=== PATIENT | male | born 1965 | race African-American/Black ===

== ENCOUNTER 2019-10-26 02:47 | Emergency (ER) | payer BC, MEDICARE ==
[2019-10-26 03:04] VITALS: PULSE 90; RESP 18
--- NOTE | 2019-10-26 03:54 | ED ---
General Adult HPI - General Source: patient, RN notes reviewed, old records reviewed Mode of arrival: ambulatory Limitations: no limitations <Alan Smith - Last Filed: 10/26/19 03:51> <Payal Albarran - Last Filed: 10/28/19 22:24> - General Chief complaint: Eye Problems Stated complaint: Eye Pain Time Seen by Provider: 10/26/19 03:09 - History of Present Illness Initial comments: 54-year-old male patient past history hypertension hyperlipidemia glaucoma since ED for chief complaint right eye pain. Patient reports that he had a cataract surgery, lens implant and glaucoma procedure performed by Dr. King on Monday. Patient reports that for presentation he pain is right eye redness, photophobia, mild mode by pain. Reports that admission the redness has improved considerably. States that his vision that baseline. Reports that he still has photophobia and reports that his discomfort is mild in the right eye. Systemic: Pt denies fatigue, fever/chills, rash. Pt denies weakness, night sweats, weight loss. Neuro: Pt denies headache, visual disturbances, syncope or pre-syncope. HEENT: Pt denies ocular discharge or irritation, otalgia, rhinorrhea, pharyngitis or notable lymphadenopathy. Cardiopulmonary: Pt denies chest pain, SOB, heart palpitations, dyspnea on exertion. Abdominal/GI: Pt denies abdominal pain, n/v/d. : Pt denies dysuria, burning w/ urination, frequency/urgency. Denies new onset urinary or bowel incontinence. MSK: Pt denies myalgia, loss of strength or function in extremities. Neuro: Pt denies new onset weakness, paresthesias. (Alan Smith) - Related Data Home Medications Medication Instructions Recorded Confirmed Simvastatin [Zocor] 20 mg PO HS 08/28/17 10/26/19 amLODIPine [Norvasc] 5 mg PO DAILY 08/28/17 10/26/19 Aspirin EC [Ecotrin Low Dose] 81 mg PO DAILY 10/26/19 10/26/19 Besifloxacin HCl [Besivance] 1 drop RIGHT EYE TID 10/26/19 10/26/19 Olmesartan/Hydrochlorothiazide 1 each PO DAILY 10/26/19 10/26/19 [Benicar Hct 40-25 mg Tablet] Allergies Allergy/AdvReac Type Severity Reaction Status Date / Time Penicillins AdvReac Itching Verified 10/26/19 03:04 Review of Systems ROS Other: All systems not noted in ROS Statement are negative. <LuisAlan Edelmira - Last Filed: 10/26/19 03:51> ROS Other: All systems not noted in ROS Statement are negative. <Payal Albarran Ward - Last Filed: 10/28/19 22:24> ROS Statement: Those systems with pertinent positive or pertinent negative responses have been documented in the HPI. Past Medical History Past Medical History: Hyperlipidemia, Hypertension Additional Past Medical History / Comment(s): back pain History of Any Multi-Drug Resistant Organisms: None Reported Additional Past Surgical History / Comment(s): laminectomy (2012), eye surgery 10/21/19 Past Anesthesia/Blood Transfusion Reactions: No Reported Reaction Past Psychological History: No Psychological Hx Reported Smoking Status: Former smoker Past Alcohol Use History: Occasional Past Drug Use History: None Reported - Past Family History Father Family Medical History: CVA/TIA Additional Family Medical History / Comment(s): L side amputee Mother Family Medical History: No Reported History <Alan Smith - Last Filed: 10/26/19 03:51> General Exam Limitations: no limitations <Alan Smith - Last Filed: 10/26/19 03:51> - General Exam Comments Initial Comments: Constitutional: NAD, AOX3, Pt has pleasant affect. HEENT: NC/AT, trachea midline, neck supple, no lymphadenopathy. Posterior pharynx non erythematous, without exudates. External ears appear normal, without discharge. Mucous membranes moist. Eyes PERRLA, EOM intact. There is no scleral icterus. No pallor noted. Mild injection noted to right eye. Intraocular pressure right eye average of 9. Intraocular pressure of left average of 12. Cardiopulmonary: RRR, no murmurs, rubs or gallops, no JVD noted. Lungs CTAB in anterior and posterior warner. No peripheral edema. Abdominal exam: Abdomen soft and non-distended. Abdomen non-tender to palpation in all 4 quadrants. Bowel sounds active in LLQ. No hepatosplenomegaly. No ecchymosis Neuro: CN II-XII grossly intact. No nuchal rigidity. No raccon eyes, no alicea sign, no hemotympanum. No cervical spinal tenderness. MSK: No posterior calf tenderness bilaterally, homans sign negative bilaterally. Posterior tibialis and radial pulse +2 bilaterally. Sensation intact in upper and lower extremities. Full active ROM in upper and lower extremities, 5/5 stregnth. (Alan Smith) Course Vital Signs 10/26/19 10/26/19 03:00 04:00 Temperature 97.9 F 98 F Pulse Rate 90 90 Respiratory 18 18 Rate Blood Pressure 149/101 136/72 O2 Sat by Pulse 96 100 Oximetry Medical Decision Making <Alan Smith - Last Filed: 10/26/19 03:51> <Payal Albarran - Last Filed: 10/28/19 22:24> - Medical Decision Making 54-year-old male patient past history hypertension hyperlipidemia glaucoma since ED for chief complaint right eye pain. Patient reports that he had a cataract surgery, lens implant and glaucoma procedure performed by Dr. King on Monday. Patient reports that for presentation he pain is right eye redness, photophobia, mild mode by pain. Reports that admission the redness has improved considerably. States that his vision that baseline. Reports that he still has photophobia and reports that his discomfort is mild in the right eye. Pt VSS, afebrile. Physical exam displayed: Mild injection noted to right eye. Intraocular pressure right eye average of 9. Intraocular pressure of left average of 12. Patient is currently taking anabiotic eyedrops as directed. Case was discussed with attending physician Dr. Albarran who discussed case with senior director of [employer] opthamology Dr. Acosta, he recommended no further intervention of patient follow up with Dr. King on monday. Attempts to reach Dr. Kign were unsuccessful. Pt will be discharged, will return to ED if condition worsens. (Alan Smith) I was available for consultation in the emergency department. The history and physical exam were done by the midlevel provider. I was consulted for this patients care. I reviewed the case with the midlevel provider and based on their presentation of the patient, I agree with the assessment, medical decision making and plan of care as documented. I discussed the case with the senior director of [employer] insole and outsole splitter Dr. Acosta. He was comfortable with the patient being discharged home and following up with Dr. King on Monday. No further concerns or recommendations at this time. Return for any new or worsening symptoms. Chart was dictated using [employer] dictation software. Attempts were made to correct any dictation errors however some typographical errors may persist. (Payal Albarran) Disposition Is patient prescribed a controlled substance at d/c from ED?: No <Alan Smith - Last Filed: 10/26/19 03:51> <Payal Albarran - Last Filed: 10/28/19 22:24> Clinical Impression: Photophobia of right eye, Hx of cataract surgery Disposition: HOME SELF-CARE Condition: Stable Instructions (If sedation given, give patient instructions): Eye Pain (ED) Additional Instructions: Follow-up with Dr. King's office tomorrow. Continue to use eyedrops as directed. Return to ED if condition worsens in anyway. Referrals: Nonstaff,Physician [Primary Care Provider] - 1-2 days Fortino King MD [STAFF PHYSICIAN] - 1-2 days
[2019-10-26 04:04] VITALS: BP 136/72; TEMP 98
== END 2019-10-26 04:03 | disposition home or self-care (01) ==
LOC: EC 02:47
DX: H53.141 Visual discomfort, right eye (principal); Z98.41 Cataract extraction status, right eye; Z96.1 Presence of intraocular lens; H57.89 Other specified disorders of eye and adnexa; H57.11 Ocular pain, right eye; E78.5 Hyperlipidemia, unspecified; I10 Essential (primary) hypertension; H40.9 Unspecified glaucoma; Z87.891 Personal history of nicotine dependence; Z88.0 Allergy status to penicillin; Z79.82 Long term (current) use of aspirin; Z79.899 Other long term (current) drug therapy; Z87.39 Personal history of other diseases of the musculoskeletal system and connective tissue
CPT/HCPCS: 99283

== ENCOUNTER 2022-06-09 21:14 | Emergency (ER) | payer MEDICARE ==
[2022-06-09 22:00] VITALS: BP 146/88; PULSE 113; RESP 20; TEMP 98.4
[2022-06-09 22:04] LABS: Glucose,Whole Blood 317 mg/dL (70-110)
--- NOTE | 2022-06-09 22:22 | ED ---
Recheck HPI - General Chief Complaint: Recheck/Abnormal Lab/Rx Stated Complaint: Hypertension Time Seen by Provider: 06/09/22 21:55 Source: patient, RN notes reviewed Mode of arrival: ambulatory Limitations: no limitations - History of Present Illness Initial Comments: This is a 57 year old male who presents to the emergency department for elevated blood sugar. He was diagnosed with DM type 2 earlier this year and states that his blood sugar is always 98-120. He had a steroid shot for plantar fascitis earlier today and since then his blood sugar has been elevated. States that at home it reached 350. He has also been experiencing sweats and excess thirst/urination. Denies any history of DKA or nausea/vomiting. Denies any sore throat, cough, dyspnea, chest pain, palpitations, abdominal pain, nausea, vomiting, diarrhea, back pain, or headaches. MD Complaint: abnormal lab (elevated blood sugar) - Related Data Home Medications Medication Instructions Recorded Confirmed Simvastatin [Zocor] 20 mg PO HS 08/28/17 10/26/19 amLODIPine [Norvasc] 5 mg PO DAILY 08/28/17 10/26/19 Aspirin EC [Ecotrin Low Dose] 81 mg PO DAILY 10/26/19 10/26/19 Besifloxacin HCl [Besivance] 1 drop RIGHT EYE TID 10/26/19 10/26/19 Olmesartan/Hydrochlorothiazide 1 each PO DAILY 10/26/19 10/26/19 [Benicar Hct 40-25 mg Tablet] Allergies Allergy/AdvReac Type Severity Reaction Status Date / Time Penicillins AdvReac Itching Verified 06/09/22 22:00 Review of Systems ROS Statement: Those systems with pertinent positive or pertinent negative responses have been documented in the HPI. ROS Other: All systems not noted in ROS Statement are negative. Past Medical History Past Medical History: Hyperlipidemia, Hypertension Additional Past Medical History / Comment(s): back pain History of Any Multi-Drug Resistant Organisms: None Reported Additional Past Surgical History / Comment(s): laminectomy (2012), eye surgery 10/21/19 Past Anesthesia/Blood Transfusion Reactions: No Reported Reaction Past Psychological History: No Psychological Hx Reported Past Alcohol Use History: Occasional Past Drug Use History: None Reported - Past Family History Father Family Medical History: CVA/TIA Additional Family Medical History / Comment(s): L side amputee Mother Family Medical History: No Reported History General Exam Limitations: no limitations General appearance: alert, in no apparent distress Head exam: Present: atraumatic, normocephalic, normal inspection Respiratory exam: Present: normal lung sounds bilaterally. Absent: respiratory distress, wheezes, rales, rhonchi, stridor Cardiovascular Exam: Present: regular rate, normal rhythm, normal heart sounds. Absent: systolic murmur, diastolic murmur, rubs, gallop, clicks Neurological exam: Present: alert, oriented X3, CN II-XII intact Psychiatric exam: Present: normal affect, normal mood Skin exam: Present: warm, dry, intact, normal color. Absent: rash Course Vital Signs 06/09/22 21:56 Temperature 98.4 F Pulse Rate 113 H Respiratory 20 Rate Blood Pressure 146/88 O2 Sat by Pulse 98 Oximetry Medical Decision Making - Medical Decision Making This is a 57-year-old male who presents to the emergency department for elevated blood sugar. Lab work was ordered, however the patient eloped prior to obtaining any of this. - Lab Data Lab Results 06/09/22 Range/Units 22:02 POC Glucose (mg/dL) 317 H (70-110) mg/dL POC Glu [employer] Operator Star Catherine Disposition Clinical Impression: Hyperglycemia due to diabetes mellitus Disposition: Left Against Medical Advice Is patient prescribed a controlled substance at d/c from ED?: No Referrals: Nonstaff,Physician [Primary Care Provider] - 1-2 days
== END 2022-06-10 04:15 | disposition left against medical advice (07) ==
LOC: EC 21:14
DX: E11.65 Type 2 diabetes mellitus with hyperglycemia (principal); I10 Essential (primary) hypertension; Z88.0 Allergy status to penicillin; Z79.82 Long term (current) use of aspirin; Z53.29 Procedure and treatment not carried out because of patient's decision for other reasons
CPT/HCPCS: 36415; 99283